=== PATIENT | female | born 1975 | race African-American/Black ===

== ENCOUNTER → 2019-05-30 | Outpatient (CLI) | payer OTHER | LOC: BC 11:10 | DX: Z12.31 Encounter for screening mammogram for malignant neoplasm of breast (principal) ==

== ENCOUNTER → 2020-09-10 | Outpatient (CLI) | payer OTHER | LOC: RAD 13:36 | PROVIDERS: ATTEND Obstetrics & Gynecology | DX: Z12.31 Encounter for screening mammogram for malignant neoplasm of breast (principal) ==